=== PATIENT | male | born 1980 | race American Indian/Alaskan Native ===

== ENCOUNTER 2019-05-24 04:15 | Emergency (ER) | payer SELFPAY ==
[2019-05-24] MEDS ORDERED: KETOROLAC 30 MG/1 ML INJ IV ONE (04:51)
--- NOTE | 2019-05-24 04:52 | Emergency Department Report ---
ED ENT HPI - General Chief complaint: Dental/Oral Stated complaint: TOOTHACHE W/FACIAL SWELLING Time Seen by Provider: 05/24/19 04:41 Source: patient Mode of arrival: Ambulatory Limitations: No Limitations - History of Present Illness Initial comments: This is a 38-year-old -[place] male that presents to the emergency room with left-sided dental pain and facial swelling for 3 days. Patient states symptoms started out with a simple tooth a for several weeks which progressed to facial swelling for the past 3 days. Patient states pain is 10 out of 10 on pain scale and worse when he attempts to open his mouth to talk or eat. Patient states he never followed up with a dentist when symptoms initially started. He denies fever, chills, drooling, sore throat, or dysphagia. MD complaint: tooth pain Onset/Timin -: days(s) Location: tooth # (19) 1 - Abscess to gingiva #19 Severity: severe Severity scale (0 -10): 10 Quality: aching, constant Consistency: constant Improves with: none Worsens with: eating, movement Context- Dental: history of dental caries, poor dental care Associated Symptoms: gum swelling, toothache. denies: fever, cough, pain with swallowing, sore throat, tinnitus, hearing loss, discharge from ear, rhinorrhea - Related Data Previous Rx's Medication Instructions Recorded Last Taken Type Acetaminophen/Codeine [Tylenol 1 tab PO Q6H PRN #12 tab 05/24/19 Unknown Rx /Codeine # 3 tab] Clindamycin [Clindamycin CAP] 300 mg PO Q6H #28 capsule 05/24/19 Unknown Rx Naproxen [Naprosyn] 500 mg PO BID PRN #20 tablet 05/24/19 Unknown Rx Allergies Allergy/AdvReac Type Severity Reaction Status Date / Time No Known Allergies Allergy Verified 05/24/19 06:26 ED Dental HPI - General Chief complaint: Dental/Oral Stated complaint: TOOTHACHE W/FACIAL SWELLING Time Seen by Provider: 05/24/19 04:41 Source: patient Mode of arrival: Ambulatory Limitations: No Limitations - Related Data Previous Rx's Medication Instructions Recorded Last Taken Type Acetaminophen/Codeine [Tylenol 1 tab PO Q6H PRN #12 tab 05/24/19 Unknown Rx /Codeine # 3 tab] Clindamycin [Clindamycin CAP] 300 mg PO Q6H #28 capsule 05/24/19 Unknown Rx Naproxen [Naprosyn] 500 mg PO BID PRN #20 tablet 05/24/19 Unknown Rx Allergies Allergy/AdvReac Type Severity Reaction Status Date / Time No Known Allergies Allergy Verified 05/24/19 06:26 ED Review of Systems ROS: Stated complaint: TOOTHACHE W/FACIAL SWELLING Other details as noted in HPI Constitutional: denies: chills, fever ENT: dental pain. denies: ear pain, throat pain Respiratory: denies: cough, shortness of breath, wheezing Cardiovascular: denies: chest pain, palpitations Gastrointestinal: denies: abdominal pain, nausea, diarrhea Musculoskeletal: denies: back pain, joint swelling, arthralgia Skin: denies: rash, lesions Neurological: denies: headache, weakness, paresthesias Psychiatric: denies: anxiety, depression ED Past Medical Hx - Past Medical History Previous Medical History?: No - Surgical History Past Surgical History?: No - Social History Smoking Status: Never Smoker Substance Use Type: None - Medications Home Medications: Home Medications Medication Instructions Recorded Confirmed Last Taken Type Acetaminophen/Codeine [Tylenol 1 tab PO Q6H PRN #12 tab 05/24/19 Unknown Rx /Codeine # 3 tab] Clindamycin [Clindamycin CAP] 300 mg PO Q6H #28 capsule 05/24/19 Unknown Rx Naproxen [Naprosyn] 500 mg PO BID PRN #20 tablet 05/24/19 Unknown Rx ED Physical Exam - General Limitations: No Limitations General appearance: alert, in no apparent distress - ENT ENT exam: Present: normal orophraynx (Uvula midline), mucous membranes moist, TM's normal bilaterally, normal external ear exam, other (Gingival swelling, palpated nodule of #20 buccal space and dental caries center tooth, tender to palpation) - Neck Neck exam: Present: lymphadenopathy (Anterior cervical, mobile, TTP). Absent: tenderness, meningismus - Respiratory Respiratory exam: Present: normal lung sounds bilaterally. Absent: respiratory distress - Cardiovascular Cardiovascular Exam: Present: regular rate, normal rhythm. Absent: systolic murmur, diastolic murmur, rubs, gallop - GI/Abdominal GI/Abdominal exam: Present: soft, normal bowel sounds - Neurological Exam Neurological exam: Present: alert, oriented X3, normal gait - Psychiatric Psychiatric exam: Present: normal affect, normal mood - Skin Skin exam: Present: warm, dry, intact, normal color. Absent: rash ED Course Vital Signs 05/24/19 05/24/19 04:20 06:43 Temperature 98.3 F 97.7 F Pulse Rate 69 63 Respiratory 18 16 Rate Blood Pressure 143/101 Blood Pressure 133/95 [Right] O2 Sat by Pulse 98 100 Oximetry ED Medical Decision Making - Radiology Data Radiology results: report reviewed CT MAXILLOFACIAL WITH INTRAVENOUS CONTRAST. CONTRAST INDICATION / CLINICAL INFORMATION: dental abscess on left lower side. TECHNIQUE: All CT scans at this location are performed using CT dose reduction for ALARA by means of automated exposure control. COMPARISON: None available. FINDINGS: MANDIBLE: There is evidence of a periapical abscess at the root of tooth #20 in the left side of the mandible. This is a carious tooth with periapical lucency and disruption of the buccal cortex. There is an adjacent subperiosteal abscess. SOFT TISSUE FACE: There is a subperiosteal abscess adjacent to the periapical abscess at the root of carious tooth #20. The abscess measures about 3 cm in superior-inferior dimension by 2.7 x 1.2 cm in transverse dimension. There is adjacent soft tissue swelling. Infiltration of the adjacent superficial fat is noted consistent with cellulitis. There is no involvement of the oral cavity. ORAL CAVITY: No abnormality is seen to involve the tongue or floor of mouth. FACIAL BONES: No fracture or other significant abnormality. PARANASAL SINUSES: Retention cyst or polyp is present at the base of the right maxillary sinus. An 11 mm diameter retention cyst or polyp is seen along the superior medial medial aspect of the left maxillary sinus. This is located just anterior to the nasomaxillary duct. Paranasal sinuses are otherwise free from inflammatory mucosal disease. NASAL CAVITY: Mild leftward deviation of the nasal septum. No additional abnormality. ORBITS: No significant abnormality. VISUALIZED INTRACRANIAL STRUCTURES: No significant abnormality. IMPRESSION: 1. An odontogenic subperiosteal abscess is present along the buccal aspect of the mandible as described in detail above. There is adjacent cellulitis. - Medical Decision Making This is a 38-year-old male that presents with tooth abscess and left side facial swelling for 3 days. Vitals are stable. There is palpated abscess at #20 vehicle, tender to palpation, and left-sided facial swelling. Airway patent. Work-up: CT of facial bones. Given IV fluids, IV clindamycin, and analgesics. CT of facial bones findings of An odontogenic subperiosteal abscess is present along the buccal aspect of the mandible. There is adjacent cellulitis. Start clindamycin, Tylenol 3, and naproxen. Referral to emergency dental clinics for continued care. Referral to ENT. Patient given strict return instructions. Patient discharged home stable. Critical care attestation.: If time is entered above; I have spent that time in minutes in the direct care of this critically ill patient, excluding procedure time. ED Disposition Clinical Impression: Dental abscess, Facial cellulitis Disposition: TO HOME OR SELFCARE Is pt being admited?: No Condition: Stable Instructions: Dental Abscess (ED), Dental Caries (ED), Toothache (ED) Additional Instructions: Complete all days of antibiotics as prescribed for 7 days. Follow up with Dentist from the referrals list below or the handout for community resources. It is important for you to follow-up with dentist within the next 24 hours. I have also provided a list of research development manager for you to follow- up with. Return to the emergency room if worsening symptoms Prescriptions: Clindamycin [Clindamycin CAP] 300 mg PO Q6H #28 capsule Naproxen [Naprosyn] 500 mg PO BID PRN #20 tablet PRN Reason: Pain, Moderate (4-6) Acetaminophen/Codeine [Tylenol /Codeine # 3 tab] 1 tab PO Q6H PRN #12 tab PRN Reason: Pain , Severe (7-10) Referrals: [facility] [Outside] - 3-[address] [facility] [Outside] - 3-5 Days [facility] [Outside] - 3-5 Days Forms: Work/School Release Form(ED) Time of Disposition: 06:38
--- NOTE | 2019-05-24 06:17 | Cat Scan Report ---
CT MAXILLOFACIAL WITH INTRAVENOUS CONTRAST. CONTRAST INDICATION / CLINICAL INFORMATION: dental abscess on left lower side. TECHNIQUE: All CT scans at this location are performed using CT dose reduction for ALARA by means of automated e xposure control. COMPARISON: None available. FINDINGS: MANDIBLE: There is evidence of a periapical abscess at the root of tooth #20 in the left side of the mandible. This is a carious tooth with periapical lucency and disruption of the buccal cortex. There is an adjacent subperiosteal abscess. SOFT TISSUE FACE: There is a subperiosteal abscess adjacent to the periapical abscess at the root of carious tooth #20. The abscess measures about 3 cm in superior-inferior dimension by 2.7 x 1.2 cm in transverse dimension. There is adjacent soft tissue swelling. Infiltration of the adjacent superficia l fat is noted consistent with cellulitis. There is no involvement of the oral cavity. ORAL CAVITY: No abnormality is seen to involve the tongue or floor of mouth. FACIAL BONES: No fracture or other significant abnormality. PARANASAL SINUSES: Retention cyst or polyp is present at the base of the right maxillary sinus. An 11 mm diameter retention cyst or polyp is seen along the superior medial medial aspect of the left maxi llary sinus. This is located just anterior to the nasomaxillary duct. Paranasal sinuses are otherwise free from inflammatory mucosal disease. NASAL CAVITY: Mild leftward deviation of the nasal septum. No additional abnormality. ORBITS: No significant abnormality. VISUALIZED INTRACRANIAL STRUCTURES: No significant abnormality. IMPRESSION: 1. An odontogenic subperiosteal abscess is present along the buccal aspect of the mandible as descr ibed in detail above. There is adjacent cellulitis. Signer Name: Wyatt Allen MD Signed: 05/24/2019 6:13 AM Workstation Name: [id number]
[2019-05-24] MEDS ORDERED: CLINDAMYCIN 600 MG/50 mL 600 MG/50 ML BAG IV ONE (06:23)
[2019-05-24 06:44] VITALS: BP 133/95
== END 2019-05-24 07:03 | disposition home or self-care (01) ==
LOC: ED 04:15
DX: Z79.899 Other long term (current) drug therapy (principal)
CPT/HCPCS: 70487; 96365; 96375; 99283; J1885; Q9967

== ENCOUNTER 2021-04-17 13:11 | Emergency (ER) | payer SELFPAY ==
[2021-04-17 13:33] VITALS: BP 149/98
--- NOTE | 2021-04-17 15:07 | Emergency Department Report ---
Chief Complaint: Nosebleed Stated Complaint: NOSE BLEED - HPI History of Present Illness: 40-year-old -[place] male presents to the emergency room stating that he has been having a nosebleed since 8 AM. Patient states this happened about 2 weeks ago and it stopped on its own. Patient denies any cocaine use denies picking of his nose denies any trauma. Patient reports he had a history of nosebleeds as a child but grew out of it since the age of 9. Patient reports he takes no medications has no known drug allergies. - Exam Vital Signs: Vital Signs 04/17/21 13:31 Temperature 98.7 F Pulse Rate 79 Respiratory 18 Rate Blood Pressure 149/98 [Left] O2 Sat by Pulse 100 Oximetry Physical Exam: General: Awake, appropriately interactive, no acute distress. Neck: Supple. Full range of motion intact. Nose: Bilateral patent nares, no active bleeding no swelling no bruising around the eyes no lesions ulcers or polyps appreciated Cardiovascular: Normal peripheral perfusion. Pulmonary: No respiratory distress. Patient is speaking normally without use of accessory muscles. Skin: No apparent rashes or lesions. Neurological: No facial asymmetry. Speech is clear. Follows commands. Patient is alert and oriented. Musculoskeletal: Full range of motion, no crepitus. No tenderness to palpate nonerythematous no edema test appreciated. Able to bear weight and ambulate without difficulty. Distal neurovascular and motor/sensory function is intact. Psych: Cooperative. Appropriate mood and affect. MSE screening note: Focused history and physical exam performed. Due to findings the following was ordered: ED Medical Decision Making - Medical Decision Making 40-year-old -[place] male presents to the emergency room stating that he has been having a nosebleed since 8 AM. Patient states this happened about 2 weeks ago and it stopped on its own. Patient denies any cocaine use denies picking of his nose denies any trauma. Patient reports he had a history of nosebleeds as a child but grew out of it since the age of 9. Patient reports he takes no medications has no known drug allergies. Patient currently has no active bleeding at this time. Patient reports she prefers to go home and follow-up outpatient to her ear nose and throat provider. ED Disposition for MSE Clinical Impression: Epistaxis Disposition: HOME / SELF CARE / HOMELESS Is pt being admited?: No Does the pt Need Aspirin: No Condition: Stable Instructions: Nosebleed, [id number] Additional Instructions: Recommended she follow-up with her primary care provider ear nose and throat provider. Her nose is not actively bleeding. If it does begin to bleed again apply pressure. You can apply ice to the nasal bridge of your nose. Referrals: NINO OWENS MD [Referring] - 3-5 Days Time of Disposition: 15:16
== END 2021-04-17 19:13 | disposition home or self-care (01) ==
LOC: ED 13:11
DX: R04.0 Epistaxis (principal)
CPT/HCPCS: 99282